=== PATIENT | female | born 1995 | race Hispanic/Latino ===

== ENCOUNTER 2021-02-11 00:40 | Emergency (ER) | payer MEDICAID ==
[~2021-02-11] VITALS: Ht 167.6 cm; Wt 83.5 kg
[2021-02-11 02:15] VITALS: BP 128/85
== END 2021-02-11 02:28 | disposition home or self-care (01) ==
LOC: EDH 00:40
DX: T22.011A Burn of unspecified degree of right forearm, initial encounter (principal); V49.49XA Driver injured in collision with other motor vehicles in traffic accident, initial encounter; Y93.89 Activity, other specified; Y92.89 Other specified places as the place of occurrence of the external cause; Y99.8 Other external cause status
CPT/HCPCS: 99281